=== PATIENT | female | born 2000 | race Native Hawaiian/Other Pacific Islander ===

== ENCOUNTER 2022-09-01 11:21 | Emergency (ER) | payer MEDICAID, SELFPAY ==
[2022-09-01] VITALS (13 sets, daily range): BP systolic 107–115; BP diastolic 65–86; PULSE 82–98; RESP 16; TEMP 36.5; O2SAT 98–100; BMI 22.1
--- NOTE | 2022-09-01 12:58 | ED_ITS ---
HPI - Nausea/Vomiting/Diarrhea General Chief complaint: Nausea/Vomiting Stated complaint: Fever, cough, abdominal pain Time Seen by Provider: 09/01/22 12:00 History of Present Illness HPI Narrative: This 22-year-old female comes in with her mother because of diarrhea with some nausea that started 2 days ago. Her mother is concerned could she has not taken much for food and drink by her report. Patient arrives with normal vital signs. She does report some pain in the mid abdomen that is not severe. She denies having any fever or respiratory symptoms. She does not have any symptoms of dysuria. Related Data Previous Rx's Medication Instructions Recorded ondansetron HCl 4 mg tablet 4 mg PO Q6H #20 tabs 09/01/22 Allergies Allergy/AdvReac Type Severity Reaction Status Date / Time No Known Drug Allergies Allergy Verified 09/01/22 11:42 Review of Systems Status of ROS: Reports: 10 or more systems reviewed and unremarkable except as noted in History and below Narrative: Constitutional: No fevers, no weight gain or loss. Eyes: No discharge. No vision changes. HENT: No congestion, no sore throat, no ear pain. Cardiovascular: No chest pain, no palpitations. Respiratory: No shortness of breath, no wheezes, no cough. Gastrointestinal: Mid abdominal pain with episodes of diarrhea. Nausea but no vomiting. Genitourinary: No dysuria, no hematuria. Musculoskeletal: Normal range of motion. Skin: No rashes, no pruritis. Neurological: No dizziness, weakness, sensory change, speech change. Endo/Heme/Allergies: No bruising or bleeding. No polydipsia. Pysch: no suicidality, no anxiety, no insomnia. All other systems reviewed and are negative. PFSH PFSH Social History Smoking Status: Never smoker Do you use any of these nicotine containing products: None Second hand tobacco smoke exposure: No How often do you have a drink containing alcohol: never AUDIT-C Alcohol total score: 0 Non-prescribed substance use: denies use service: No Exam Narrative: Exam Narrative: Constitutional: Well-developed, well-nourished, no acute distress. HEENT: Normocephalic, atraumatic. Neck: Normal range of motion. Nontender. Supple. Heart: Regular. No murmurs. Normal rate. Intact distal pulses. Lungs: Clear to auscultation. No chest discomfort. No wheezes, rhonchi, or rales. Abdomen: Normal bowel sounds. Diffuse mid abdominal tenderness. No rebound tenderness. Genitalia: Deferred. Back: No midline tenderness. Normal range of motion. Extremities: Normal range of motion. No injury. Skin: Intact. No rash. Warm. No erythema or pallor. Neurologic: No altered sensation. No weakness. Alert and oriented. Psychiatric: No suicidality. No anxiety or depression. No insomnia. Nursing notes and vitals signs are reviewed. Const: Vital Signs, click to edit/add: Vital Signs - 24 hr 09/01/22 11:40 09/01/22 13:20 09/01/22 13:21 Temperature 97.7 F Pulse Rate 98 92 Pulse Rate [Pulse Oximeter] 92 Respiratory Rate 16 Blood Pressure 107/73 Blood Pressure [Ri ght Upper Arm] 113/79 Pulse Oximetry 98 100 100 Oxygen Delivery Me thod Room Air Course Vital Signs Vital signs: Initial Vital Signs Temperature 97.7 F 09/01/22 11:40 Temperature Source Temporal Artery Scan 09/01/22 11:40 Pulse Rate 92 09/01/22 11:40 Pulse Rhythm 09/01/22 11:40 Pulse Strength 3+ Normal 09/01/22 11:40 Respiratory Rate 16 09/01/22 11:40 Blood Pressure 113/79 09/01/22 11:40 Blood Pressure Mean 90 09/01/22 11:40 Blood Pressure Position Sitting 09/01/22 11:40 Pulse Oximetry 98 09/01/22 11:40 Oxygen Delivery Method 09/01/22 11:40 Vital Signs Temperature 97.7 F 09/01/22 11:40 Pulse Rate 92 09/01/22 11:40 Respiratory Rate 16 09/01/22 11:40 Blood Pressure 113/79 09/01/22 11:40 Pulse Oximetry 98 09/01/22 11:40 Oxygen Delivery Method 09/01/22 11:40 Temperature 97.7 F 09/01/22 11:40 Pulse Rate 92 09/01/22 13:21 Respiratory Rate 16 09/01/22 11:40 Blood Pressure 107/73 09/01/22 13:21 Pulse Oximetry 100 09/01/22 13:21 Oxygen Delivery Method 09/01/22 11:40 MDM - Nausea/Vomiting/Diarrhea MDM Narrative Medical decision making narrative: This patient comes in reporting a couple days of diarrhea with some nausea but no vomiting. She has not had any fevers. Her mother is concerned that she is not taking much for food and drink. An IV was established here where she received a L of normal saline and 4 mg of Zofran. Lab results are acquired and returned with normal findings. The patient has normal vital signs and is not in acute distress. She states that she feels better with the treatments she received. She is okay to be discharged home and encouraged to advance her diet as tolerated. She did received prescription for Zofran and is encouraged to use Imodium as needed and directed for diarrhea. Lab Data Labs: Lab Results 09/01/22 09/01/22 Range/Units 12:58 12:58 WBC 3.20 L (4.50-11.00) K/uL RBC 4.74 (4.00-5.20) m/uL Hgb 11.5 L (12.0-16.0) gm/dL Hct 35.3 (33.0-51.0) % MCV 75 L (80-100) fL MCH 24 L (26-34) pg MCHC 33 (32-36) gm/dL RDW Coeff of Kera 16.6 H (11.5-15.5) % Plt Count 172 (140-440) K/uL Neut % (Auto) 59.0 (42.0-72.0) % Lymph % (Auto) 26.6 (20-44) % Alfalfa % (Auto) 10.3 (0.0-11.0) % Eos % (Auto) 3.8 (0.0-7.0) % Baso % (Auto) 0.3 (0.0-3.0) % Neut # (Auto) 1.90 (1.7-7.0) K/uL Lymph # (Auto) 0.90 (0.90-2.90) K/uL Alfalfa # (Auto) 0.30 (0.00-0.90) K/UL Eos # (Auto) 0.10 (0.00-0.50) K/uL Baso # (Auto) 0.00 (0.00-0.30) K/uL Abs Immat Gran (auto) 0.00 (0.00-0.30) K/uL Imm/Tot Granulo (auto) 0.0 % Sodium 138 (135-149) mmol/L Potassium 3.2 L (3.6-5.1) mmol/L Chloride 99 (96-114) mmol/L Carbon Dioxide 27 (20-32) mmol/L BUN 6 (5-24) mg/dL Creatinine 0.4 L (0.5-1.5) mg/dL Estimated Creat Clear 184.04 Estimated GFR 144 ml/min Glucose 87 (60-115) mg/dL Calcium 9.2 (8.4-10.6) mg/dL Discharge Plan Discharge Clinical Impression: Gastroenteritis Patient Disposition: Home w/ Parent or Adult Condition: Stable Additional Instructions: Take Zofran as indicated and needed for nausea. Use Imodium as directed and needed for diarrhea symptoms. Increase diet as tolerated. Follow up with MD or return if worsening. Prescriptions: New ondansetron HCl 4 mg tablet 4 mg PO Q6H Qty: 20 0RF Follow Up/Referrals: Declan Gilliland MD [Primary Care Provider] - Stand Alone Forms: [employer] Info Instructions
[2022-09-01] MEDS: 0.9 % SODIUM CHLORIDE 1000 ml 1,000 ML IV (13:17)
[2022-09-01] MEDS: ONDANSETRON 2 MG/ML inj 4 MG IVP (13:17)
[2022-09-01 13:27] LABS: Basophils Percent Auto 0.3 % (0.0-3.0); Eosinophils Percent Auto 3.8 % (0.0-7.0); Hematocrit 35.3 % (33.0-51.0); Hemoglobin* 11.5 gm/dL (12.0-16.0); Lymphocytes Percent Auto 26.6 % (20-44); Mean Corpuscular HGB Conc 33 gm/dL (32-36); Mean Corpuscular Hemoglobin 24 pg (26-34); Mean Corpuscular Volume 75 fL (80-100); Monocytes Percent Auto 10.3 % (0.0-11.0); Platelet Count* 172 K/uL (140-440); RDW Coefficient of Variation % 16.6 % (11.5-15.5); Red Blood Count 4.74 m/uL (4.00-5.20)
[2022-09-01 13:28] LABS: Slide Review Reflex No
[2022-09-01 13:44] LABS: Chloride* 99 mmol/L (96-114)
[2022-09-01 13:45] LABS: Potassium* 3.2 mmol/L (3.6-5.1); Sodium* 138 mmol/L (135-149)
[2022-09-01 13:47] LABS: Creatinine* 0.4 mg/dL (0.5-1.5); Est. Creatinine Clearance* 184.04; Estimated Glomerular Filt Rate 144 ml/min
[2022-09-01 13:48] LABS: Blood Urea Nitrogen* 6 mg/dL (5-24); Calcium* 9.2 mg/dL (8.4-10.6); Carbon Dioxide* 27 mmol/L (20-32); Glucose* 87 mg/dL (60-115)
== END 2022-09-01 14:45 | disposition home or self-care (01) ==
PROVIDERS: Emergency Provider Emergency Medicine Emergency Medical Services; PCP Family Medicine
DX: K52.9 Noninfective gastroenteritis and colitis, unspecified (principal)
CPT/HCPCS: 36415; 80048; 85025; 96361; 96374; 99284; J2405; J7030